=== PATIENT | male | born 1950 | race Caucasian/White ===

== ENCOUNTER → 2020-12-12 | Outpatient (CLI) | payer MEDICARE | END | disposition home or self-care (01) | LOC: STAR 10:53 | PROVIDERS: ATTEND Ophthalmology | DX: Z01.818 Encounter for other preprocedural examination (principal); Z01.89 Encounter for other specified special examinations; Z01.812 Encounter for preprocedural laboratory examination; R79.1 Abnormal coagulation profile | CPT/HCPCS: 93005 ==